=== PATIENT | female | born 1980 | race Caucasian/White ===

== ENCOUNTER 2016-11-09 10:49 | Emergency (ER) | payer MEDICAID, OTHER ==
--- NOTE | 2016-11-09 10:59 | UCPHY ---
H & P Patient Type: Established HPI/ROS: HPI CHIEF COMPLAINT: Cough, sore throat, upper respiratory tract infection type symptoms HISTORY OF PRESENT ILLNESS: this patient very pleasant 35-year-old female she denies any significant medical or surgical history does not take any daily medications she presents to the urgent care by private vehicle with upper respiratory tract infection type symptoms. She has had runny nose, sore throat , cough that is nonproductive. She denies any chest pain or shortness of breath or hemoptysis. Denies high fever. Sick contacts a week ago with her best friend no sick contacts at direct home. Past Medical History: Denies significant medical history Past Surgical History: denies significant surgical history Social History: denies daily use of drugs alcohol tobacco products Family History: noncontributory ROS REVIEW OF SYSTEMS: A comprehensive 10 point review of systems is otherwise negative aside from elements mentioned in the history of present illness. Exam Constitutional triage nursing summary reviewed, vital signs reviewed, awake/ alert. Eyes normal conjunctivae and sclera, EOMI, PERRLA. HENT right TM is erythematous, there is fluid behind it, left TM normal, posterior pharynx normal, no significant redness, no swelling, no exudate, atraumatic, moist mucus membranes, no epistaxis, neck supple/ no meningismus, no raccoon eyes. Respiratory clear to auscultation bilaterally, normal breath sounds, no respiratory distress, no wheezing. Cardiovascular rate normal, regular rhythm, no murmur, no edema, distal pulses normal. Gastrointestinal soft, non-tender, no rebound, no guarding, normal bowel sounds, no distension, no pulsatile mass. Genitourinary no CVA tenderness. Musculoskeletal no midline vertebral tenderness, full range of motion, no calf swelling, no tenderness of extremities, no meningismus, good pulses, neurovascularly intact. Skin pink, warm, & dry, no rash, skin atraumatic. Neurologic awake, alert and oriented x 3, AAOx3, moves all 4 extremities equally, motor intact, sensory intact, CN II-XII intact, normal cerebellar, normal vision, normal speech. Psychiatric normal mood/affect. Heme/Lymph/Immune no lymphadenopathy. Differential Diagnosis: includes but is not limited to in a particular order, viral syndrome, upper respiratory tract infection, otitis media, sinusitis, doubt bacterial pneumonia Medical Decision Making: this patient appears well here nontoxic is afebrile no hypoxia. Has cold-like symptoms upper respiratory tract infection her right ear is slightly erythematous without any significant disc bulge, minimal fluid behind this. Due to complain of sore throat, cough, runny nose and possible infection of the right ear place her on azithromycin and Mucinex. 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 Return to the urgent care or emergency room if there is any worsening symptoms questions or concerns. Source: Patient - Personal History Tetanus Vaccine Date: < 10 years - Medical/Surgical History Hx Asthma: No Hx Chronic Respiratory Disease: No Hx Diabetes: No Hx Cardiac Disease: No Hx Renal Disease: No Hx Cirrhosis: No Hx Alcoholism: No Hx HIV/AIDS: No Hx Splenectomy or Spleen Trauma: No Other PMH: arthritis. mood issues - Family History Significant Family History: No pertinent family hx - Social History Smoking Status: Never smoked Allergies/Adverse Reactions: Sulfa (Sulfonamide Antibiotics) Allergy (Verified 11/09/16 11:06) Home Medications: Medication Instructions Recorded AZITHROMYCIN [Z-PACK] 250 mg PO DAILY #6 tab 11/09/16 Adderall 10 MG (*) 11/09/16 Clonazepam 11/09/16 Gabapentin 11/09/16 Guaifenesin [Guaifenesin ER] 600 mg PO BID #14 tab.er.12h 11/09/16 Departure - Departure Disposition: Home, Routine, Self-Care Clinical Impression: URI (upper respiratory infection) Qualifiers: URI type: unspecified viral URI Qualified Code(s): J06.9 - Acute upper respiratory infection, unspecified; B97.89 - Other viral agents as the cause of diseases classified elsewhere Condition: Good Instructions: Viral Syndrome (ED), Upper Respiratory Infection (ED) Additional Instructions: 1.Drink lots of fluids stay well-hydrated 2. return to the urgent care or emergency room if develops any worsening symptoms includes high fever, vomiting. Referrals: Marina Mccullough MD [Primary Care Provider] - As per Instructions Prescriptions: AZITHROMYCIN [Z-PACK] 250 mg PO DAILY #6 tab Guaifenesin [Guaifenesin ER] 600 mg PO BID #14 tab.er.12h - PQRS PQRS Measurement: n/a
[2016-11-09 11:09] VITALS: BP 129/90; PULSE 93; RESP 18; TEMP 97.3; O2SAT 98
== END 2016-11-09 11:16 | disposition home or self-care (01) ==
LOC: CED 10:49
DX: J06.9 Acute upper respiratory infection, unspecified (principal); B97.89 Other viral agents as the cause of diseases classified elsewhere
CPT/HCPCS: 99214-PO; G0463-PO